=== PATIENT | female | born 1970 | race Caucasian/White ===

== ENCOUNTER 2017-11-19 23:29 | Inpatient (IN) | payer OTHER ==
[2017-11-20] MEDS ORDERED: Sodium Citrate/Citric Acid* 15 ML UDC PO ONE (01:05)
[2017-11-20] MEDS ORDERED: ceFOXitin 2 GM IVPREMIX* 2 GM/50 ML BAG IVPB ONE (01:05)
--- NOTE | 2017-11-20 01:15 | HP ---
General Information - General Information Maternal Age: 47 Grav: 2 Para: 1 SAB: 0 IEA: 0 Estimated Due Date: 12/19/17 Determined By: Early Ultrasound Maternal Blood Type and Rh: AB Positive - Results this Serology/RPR Result: Non-Reactive Rubella Result: Immune HBsAg Result: Negative HIV Result: Negative Past Medical History Delivery History: Hx C/Section Pertinent Past Medical History: See Records Pertinent Past Surgical History: See Records Pertinent Family History: Non-Contributory - Antepartal Records Antepartal Records: Reviewed, Complicated by: - previous / ama / hypothyrpoid Review of Systems Constitutional: Comfortable Genitourinary: Bleeding, Leaking Fluid Musculoskeletal: Contractions Movement: Normal Exam Allergies/Adverse Reactions: Allergies No Known Allergies Allergy (Verified 11/20/17 00:09) Lab Values - Entire Visit: Laboratory Tests 11/19/17 23:59 Vag Amniotic Fld Detect Positive - Measurements Height: 5 ft 2 in Weight: 160 lb Weight in lbs: [id number] Body Mass Index (BMI): 29.2 Pre- Weight: 140 lb 0.007 oz Weight Gained This : 19.999 lbs and 0.009 ozs - Exam Breast: Breast Exam Deferred CVA: No CVA Tenderness Extremities: No Edema Heart: Normal Rhythm/Heart Sounds HEENT: No Significant Findings Lungs: Clear Bilaterally Rectal: Rectal Exam Deferred Reflexes: DTR 2+ Targeted Exam Findings Presenting Part: Vertex Membrane Status: SROM Amniotic Fluid Evaluation: Bloody EFM Findings - External Monitor Findings Baseline Heart Rate: 140 External Monitor Findings: Accelerations Present, Variability Moderate Contractions: Regular, Mild, 45-90 Seconds Assessment/Plan - Assessment premaure rupture of membranes and labor - Obstetrical Risk Factors Obstetrical Risk Factors: GBS Unknown, , Assisted Reproduction, Previous C/Section in Labor - Plan Plan: Expedite C/S Delivery
[2017-11-20] MEDS ORDERED: OXYTOCIN* 10 UNITS/ML 1 ML VIAL ONE (01:56)
[2017-11-20] MEDS ORDERED: Morphine PF AMP (0.5MG/ML)* 5 MG/10 ML AMP ONE (01:56)
[2017-11-20] MEDS ORDERED: Lidocaine 2% PF * 5 ML VIAL ONE (01:57)
[2017-11-20] MEDS ORDERED: Bupivacaine-MPF SPINAL* 7.5 MG/ML - 2ML AMP ONE (01:57)
[2017-11-20] MEDS ORDERED: Phenylephrine INJ* 10 MG/ML 1 ML VIAL (10 MG) ONE (01:57)
[2017-11-20] MEDS ORDERED: Naloxone* 0.4 MG/ML 1 ML VIAL IV PRN ×2 (02:50→02:51)
[2017-11-20] MEDS ORDERED: fentaNYL* 50 MCG/ML 2 ML VIAL (100 MCG VIAL) IV PRN (02:50)
[2017-11-20] MEDS ORDERED: Ondansetron INJ* 2 MG/ML VIAL IV PRN ×2 (02:50→02:51)
[2017-11-20] MEDS ORDERED: Ketorolac INJ* 30 MG/ML 1 ML VIAL IV PRN (02:50)
[2017-11-20] MEDS ORDERED: Nalbuphine* 10 MG/ML 1 ML VIAL IV PRN (02:51)
[2017-11-20] MEDS ORDERED: diPHENhydraMINE IV* 50 MG/ML 1 ml VIAL (BENADRYL) IV PRN (02:51)
[2017-11-20] MEDS ORDERED: oxyCODONE/Acetamin 5/325 MG* TAB PO PRN ×4 (02:51→18:16)
[2017-11-20] MEDS ORDERED: Witch Hazel PAD* JAR TOPICAL PRN (03:54)
[2017-11-20] MEDS ORDERED: Dibucaine 1% 28.35 GM TUBE PR PRN (03:54)
[2017-11-20] MEDS ORDERED: Glycerin ADULT SUPP PR PRN (03:54)
[2017-11-20] MEDS ORDERED: Oxytocin in LR* 20 UNITS/1,000 ML BAG IVPB SCH (04:00)
--- NOTE | 2017-11-20 05:44 | OP ---
DATE OF OPERATION: 11/20/17 - ROOM #102 DATE OF : 70 SURGEON: Dr. Velazquez. SLURRY MIXER: Dr. [place] and JOSE Conde. ANESTHESIA: Spinal. PRE-OP DIAGNOSES: premature rupture of membranes, labor, and previous section, advanced maternal age. POST-OP DIAGNOSES: premature rupture of membranes, labor, and previous section, advanced maternal age. OPERATIVE PROCEDURE: Low transverse section. ESTIMATED BLOOD LOSS: 600 cc. FINDINGS: This is a 47-year-old, 2, para 1, status post an IVF who presented initially to our Labor and Delivery in the morning with a little bit of spotting and some cramping and then was not labor, biophysical profile was 10/10. She went home in stable condition. She re-presented after spontaneous rupture of membranes approximately at 11:30 p.m. and was having contractions every 2 to 3 minutes. At the time of , she had a viable male, Apgars 8 and 9, weight was 6 pounds 5 ounces. Normal appearing uterus, fallopian tubes, and ovaries. DESCRIPTION OF PROCEDURE: The patient identified, procedure identified as low transverse section. The patient was taken to the operating room, prepped and draped in the usual fashion in the left lateral recumbent position under spinal anesthesia. A Pfannenstiel incision was made in the abdomen through the old incision and the scar was excised. The incision was carried down through the fat, fascia, and then the peritoneum. A transverse incision was made in the lower uterine segment, extended laterally using blunt dissection. The above was delivered through the incision with ease. The cord was doubly clamped and cut, the infant was handed to the awaiting extension clerk. Cord blood was obtained. Placenta delivered spontaneously. The uterus was wiped out with a wet lap sponge. The uterine incision was then closed using 0 Polysorb in a running fashion. A second layer was used to imbricate the first layer. Good hemostasis was verified and good hemostasis achieved using 0 Polysorb [id number] sutures. The uterus was slid back into the abdominal cavity. The gutters were wiped out with a lap sponge. The peritoneum was then closed using 3-0 Polysorb in a running fashion. Good hemostasis was achieved in the subrectus layers. The fascia was closed using 0 Polysorb in a running fashion. Copious irrigation was utilized and suctioned out and the skin was closed with 4-0 Monocryl in a subcuticular fashion. All sponge and instrument counts were correct and the patient returned to the recovery room in stable condition. [id number]/[facility] #: [id number] [facility]
[2017-11-20] MEDS: Docusate CAP* 100 MG PO SCH ×2 (09:04→19:25)
[2017-11-20] MEDS: Simethicone TAB* 80 MG TAB.CHEW PO SCH ×4 (09:04→19:25)
[2017-11-20] MEDS: Ketorolac INJ* 30 MG/ML 1 ML VIAL IV PRN ×3 (11:04→23:15)
[2017-11-20] MEDS ORDERED: Zolpidem TAB* 5 MG PO PRN (21:00)
[2017-11-21] MEDS: Ibuprofen TAB* 600 MG PO PRN ×3 (05:15→20:20)
[2017-11-21 06:38] LABS: Hematocrit 29 % (35-47); Hemoglobin 9.9 g/dl (12.0-16.0); Mean Corpuscular HGB Conc 34 g/dl (31-36); Mean Corpuscular Hemoglobin 31 pg (27-31); Mean Corpuscular Volume 91 fL (80-97); Platelet Count 182 10^3/ul (150-450); Red Blood Count 3.24 10^6/ul (4.00-5.40); Red Cell Distribution Width 14 % (10.5-15); White Blood Count 11.4 10^3/ul (3.5-10.8)
[2017-11-21 06:47] LABS: ABS Basophils 0.1 10^3/ul (0-0.2); ABS Eosinophils 0.1 10^3/ul (0-0.6); ABS Monocytes 0.7 10^3/ul (0-0.8); ABS Neutrophils 8.6 10^3/ul (1.5-7.7); ABS Nucleated RBC 0 10^3/ul
[2017-11-21 07:37] LABS: Eosinophil % 0.5 % (0-6); Lymphocyte % 17.3 % (25-47); Nucleated Red Blood Cells % 0
[2017-11-21] MEDS: Simethicone TAB* 80 MG TAB.CHEW PO SCH ×4 (07:55→20:21)
[2017-11-21] MEDS: Docusate CAP* 100 MG PO SCH ×3 (07:55→20:21)
[2017-11-21] MEDS: Acetaminophen TAB* 325 MG PO PRN ×2 (07:55→18:28)
[2017-11-21] MEDS ORDERED: Levothyroxine TAB* 25 MCG TAB ONE (10:29)
[2017-11-21] MEDS ORDERED: Prenatal Vitamin TAB ONE (10:29)
[2017-11-21] MEDS: Ferrous Gluconate TAB* 324 MG TAB PO SCH ×2 (10:32→20:20)
[2017-11-21] MEDS: Prenatal Vitamin TAB PO SCH (10:32)
[2017-11-22] MEDS: Acetaminophen TAB* 325 MG PO PRN ×4 (02:38→20:16)
[2017-11-22] MEDS: Ibuprofen TAB* 600 MG PO PRN ×3 (02:38→16:22)
[2017-11-22] MEDS: Levothyroxine TAB* 25 MCG TAB PO SCH (07:06)
[2017-11-22] MEDS: Ferrous Gluconate TAB* 324 MG TAB PO SCH ×2 (07:56→20:17)
[2017-11-22] MEDS: Simethicone TAB* 80 MG TAB.CHEW PO SCH ×3 (07:56→20:17)
[2017-11-22] MEDS: Prenatal Vitamin TAB PO SCH (07:56)
[2017-11-22] MEDS: Docusate CAP* 100 MG PO SCH ×3 (07:56→20:16)
[2017-11-22] MEDS ORDERED: Levothyroxine TAB* 25 MCG TAB PO SCH (09:00)
[2017-11-23] MEDS: Ibuprofen TAB* 600 MG PO PRN ×2 (04:08→13:46)
[2017-11-23] MEDS: Acetaminophen TAB* 325 MG PO PRN ×2 (06:19→13:46)
[2017-11-23] MEDS: Levothyroxine TAB* 25 MCG TAB PO SCH (06:20)
[2017-11-23] MEDS: Docusate CAP* 100 MG PO SCH ×2 (08:49→13:46)
[2017-11-23] MEDS: Ferrous Gluconate TAB* 324 MG TAB PO SCH (08:50)
[2017-11-23] MEDS: Prenatal Vitamin TAB PO SCH (08:50)
[2017-11-23] MEDS: Simethicone TAB* 80 MG TAB.CHEW PO SCH (08:50)
[2017-11-23 09:57] VITALS: BP 124/74
== END 2017-11-23 14:04 | disposition home or self-care (01) | DRG 766 ==
LOC: MCHOBOUT 23:29 → MCHOB 11-20 00:39
PROVIDERS: ADMIT Obstetrics & Gynecology; ATTEND Obstetrics & Gynecology
PROC: 10D00Z1 Extraction of Products of Conception, Low, Open Approach (ICD-10-PCS; principal; 2017-11-20 02:00)
DX: O60.14X0 Preterm labor third trimester with preterm delivery third trimester, not applicable or unspecified (principal); O42.013 Preterm premature rupture of membranes, onset of labor within 24 hours of rupture, third trimester; O99.284 Endocrine, nutritional and metabolic diseases complicating childbirth; O34.211 Maternal care for low transverse scar from previous cesarean delivery; E03.9 Hypothyroidism, unspecified; O90.81 Anemia of the puerperium; D64.9 Anemia, unspecified; Z3A.35 35 weeks gestation of pregnancy; Z37.0 Single live birth
CPT/HCPCS: 36415; 84112; 85025; 88307; A9270-GY; J0694; J1885; J2590; J3010